=== PATIENT | male | born 1975 | race Caucasian/White ===

== ENCOUNTER 2025-01-23 11:10 | Outpatient (OUT) | payer BC, SELFPAY ==
--- OUTSIDE RECORDS SUMMARY | 2025-01-23 11:20 | XMS_ITS | Clinical Summary ---
Author Organization [facility] Healthcare Address [address] [place] [address] Care Team Providers Care Cook Jelly Name Role Phone Unavailable Primary Care Provider Unavailabl e Allergies No known active allergies Medications albuterol HFA (ProAir HFA) 90 mcg/act inhalerIndication s:Asthma Inhale 2 puffs every 4 (four) hours if needed for wheezing. 8.5 g 3 3 Active Albuterol-Budeson omar (Airsupra) 90-80 MCG/ACT aerosolIndication s:Asthma, allergic, mild intermittent, uncomplicated (HCC) Inhale 2 puffs every 4 (four) hours if needed (As needed for cough shortness of breath or wheezing) 10.7 g 3 5 Active fluticasone-salme terol (Advair HFA) 115-21 MCG/ACT inhalerIndication s:Asthma, allergic, mild intermittent, uncomplicated (HCC) Inhale 2 puffs in the morning and 2 puffs before bedtime. Rinse mouth with water after use to reduce aftertaste and incidence of candidiasis. Do not swallow.. 12 g 5 07/10/19 26 Active fluticasone (Flonase) 50 MCG/ACT nasal sprayIndications: Chronic rhinitis Administer 2 sprays into each nostril Daily Shake gently. Before first use, prime pump. After use, clean tip and replace cap. 16 g 5 07/10/19 26 Active loratadine (Claritin) 10 MG tabletIndications :Chronic rhinitis Take 1 tablet (10 mg) by mouth Daily as needed for allergies 30 tablet 5 07/10/19 26 Active montelukast (Singulair) 10 MG tabletIndications :Asthma, allergic, mild intermittent, uncomplicated (HCC) Take 1 tablet (10 mg) by mouth at bedtime 10 tablet 07/10/19 Active tiotropium (Spiriva Respimat) 1.25 MCG/ACT inhalerIndication s:Asthma, allergic, mild intermittent, uncomplicated (HCC) Inhale 2 puffs Daily 1 each 07/10/19 Active azelastine (Optivar) 0.05 % ophthalmic solutionIndicatio ns:Chronic rhinitis Administer 1 drop into both eyes in the morning and 1 drop before bedtime. 6 mL 07/10/19 Active azelastine (Astelin) 0.1 % nasal sprayIndications: Chronic rhinitis Administer 2 sprays into each nostril in the morning and 2 sprays before bedtime. Use in each nostril as directed. 30 mL 07/10/19 Active Active Problems No known active problems Social History Tobacco Use Types Packs/Day Years Used Date Smoking Tobacco: Never Smokeless Tobacco: Never Tobacco Cessation:Counseling Given: Not Answered Comments Unknown Sex and Gender Information Value Date Recorded Sex Assigned at Not on file Legal Sex Female 8:25 PM EDT Gender Identity Not on file Sexual Orientation Not on file Last Filed Vital Signs Vital Sign Reading Time Taken Comments Blood Pressure 120/72 06/12/2018 12:00 PM EST Pulse - - Temperature - - Respiratory Rate - - Oxygen Saturation - - Inhaled Oxygen Concentration - - Weight 78.9 kg (174 lb) 07/10/2024 3:21 PM EST Height 175.3 cm (5' 9 ) 09/30/2020 12:00 PM EDT Body Mass Index 25.7 09/30/2020 12:00 PM EDT Plan of Treatment Upcoming Encounters Date Type Department Care Team (Late st Contact Info) Description 07/09/2025 4:00 PM EST Office Visit [facility] [address] [facility] [address] [place] [phone] Alexander Ching MD [address] [facility] [facility] [address] [place] [address] Insurance [facility]
[2025-01-23 13:16] LABS: TSH W/ REFLEX FT4 0.043 uIU/mL (0.358-3.740)
== END 2025-01-23 11:11 | disposition home or self-care (01) ==
LOC: LAB 11:18
PROVIDERS: PCP Nurse Practitioner Family; Visit Provider Nurse Practitioner Family
DX: E89.0 Postprocedural hypothyroidism (principal); Z98.890 Other specified postprocedural states; Z90.89 Acquired absence of other organs
CPT/HCPCS: 36415; 84439; 84443

== ENCOUNTER 2025-02-12 15:22 | Outpatient (OUT) | payer BC, SELFPAY ==
--- OUTSIDE RECORDS SUMMARY | 2025-02-12 15:23 | XMS_ITS | Clinical Summary ---
Author Organization [facility] Address [address] [place], [place] [id number] Care Team Providers Care Culinary Instructor Name Role Phone Michael TOMAS Chidi Primary Care Provider Allergies Active Allergy Reactions Criticality Noted Date Comments Nsaids (Non-Steroidal Anti-Inflammatory Drug) Other: See Comments 12/17/2018 Penicillins Rash 12/15/2010 Metoclopramide Hcl Other: See Comments 12/16/19 11 Locked jaw Seasonal Allergies Intolerance 12/15/2010 Medications fluticasone-indira meterol (ADVAIR DISKUS) 500-50 mcg/dose INHALATION DsDv Inhale 1 Puff as instructed twice daily. rinse and gargle mouth with water after each use 1 Inhaler 0 1 Active mometasone 50 mcg/Actuation NASAL nasal spray Use 2 Sprays in each nostril once daily. 1 g 0 1 Active montelukast (SINGULAIR) 10 mg ORAL tablet Take 1 tablet by mouth daily at bedtime. 0 1 Active albuterol HFA 90 mcg/Actuation INHALATION inhaler Inhale 2 Puffs as instructed every 4 hours as needed. 1 Inhaler 3 1 Active levothyroxine (SYNTHROID) 150 mcg tablet Take 150 mcg by mouth once daily. 6 9 Active calcium carbonate (CALCIUM 500 ORAL) Take by mouth. Activ e MULTIVITAMIN ORAL Take by mouth. Activ e acetaminophen (TYLENOL EXTRA STRENGTH) 500 mg tablet Take 500 mg by mouth as needed. Active Active Problems No known active problems Social History Tobacco Use Types Packs/Day Years Used Date Smoking Tobacco: Never Smokeless Tobacco: Never PHQ-2 Answer Date Recorded PHQ-2 score 0 12/17/2018 Area Deprivation Index Answer Date Cy rded National Score (1-100), lower number is lower ri sk Not on file 05/05/2020 State Score (1-10), lower number is lower risk N ot on file 05/05/2020 Data from: https://www.neighborhoodatlas.medicine.[facility].edu/. Last address used for calculation Not on file 05/05/2020 Comments Unknown Sex and Gender Information Value Date Recorded Sex Assigned at Not on file Legal Sex Female 10:07 AM EST Gender Identity Not on file Sexual Orientation Not on file Last Filed Vital Signs Vital Sign Reading Time Taken Comments Blood Pressure 120/72 02/11/2019 12:08 PM EDT Pulse 85 02/11/2019 12:08 PM EDT Temperature 37 C (98.6 F) 02/11/2019 12:08 PM EDT Respiratory Rate - - Oxygen Saturation 97% 12/15/2010 1:04 PM EDT Inhaled Oxygen Concentration - - Weight 74.8 kg (165 lb) 02/11/2019 12:08 PM EDT Height 177.8 cm (5' 10 ) 02/11/2019 12:08 PM EDT Body Mass Index 23.68 02/11/2019 12:08 PM EDT Plan of Treatment Health Maintenance Due Date Last Done Comments Anxiety Screening 1992 Depression Screening 1992 HIV Screening 1992 Hepatitis C Screening 1992 DTaP,Tdap,Td Vaccine (1 - Tdap) 1993 Hepatitis B Vaccine (1 of 3 - 19+ 3-dose series) 1993 Cervical Cancer Screening [address] Colonography 2019 Cologuard (FIT-DNA) 2019 Colonoscopy 2019 Colorectal Cancer Screening 2019 Fecal Occult Blood 2019 Lipid Screening 2019 Sigmoidoscopy 2019 Diabetes Screening 12/17/2021 12/17/2018 Pneumococcal Vaccine: 50+ (1 of 1 - PCV) 2024 Shingrix Vaccine (1 of 2) 2024 Influenza Vaccine (#1) 2025 8, 03/05/2017, 02/18/2016, Additional history exists Procedures Procedure Name Priority Date/Time Associated Diagnosis Comments COMPREHENSIVE METABOLIC PANEL Routine 12/17/2018 9:29 AM EDT Hypermobility arthralgia Fibromyalgia from Last 3 Months or Most Recently Relevant to Health Maintenance Results * COMP METABOLIC PANEL (12/17/2018 9:29 AM EDT) Pathologist [facility] Protein, Total 7.7 6.3 - 8.0 g/dL 12/17/2018 11:14 AM [facility] Albumin 4.9 3.9 - 4.9 g/dL 12/17/2018 11:14 AM [facility] Calcium 9.6 8.5 - 10.2 mg/dL 12/17/2018 11:14 AM [facility] Bilirubin, Total 0.4 0.2 - 1.3 mg/dL 12/17/2018 11:14 AM [facility] Alkaline Phosphatase 79 34 - 123 U/L 12/17/2018 11:14 AM [facility] AST 16 13 - 35 U/L 12/17/2018 11:14 AM [facility] Glucose 96 74 - 99 mg/dL 12/17/2018 11:14 AM [facility] Comment: The [place] Diabetes Association (ADA) provides guidance for cutoff values for fasting glucose and random glucose. The ADA defines fasting as no caloric intake for at least 8 hours. Fasting plasma glucose results between 100 to 125 mg/dL indicate increased risk for diabetes (prediabetes). Fasting plasma glucose results greater than or equal to 126 mg/dL meet the criteria for diagnosis of diabetes. In the absence of unequivocal hyperglycemia, results should be confirmed by repeat testing. In a patient with classic symptoms of hyperglycemia or hyperglycemic crisis, random plasma glucose results greater than or equal to 200 mg/dL meet the criteria for diagnosis of diabetes. Reference: Standards of Medical Care in Diabetes 2016, [place] [employer]. Diabetes Care. 2016.39(Suppl 1). BUN 9 7 - 21 mg/dL 12/17/2018 11:14 AM [facility] Creatinine 0.93 0.58 - 0.96 mg/dL 12/17/2018 11:14 AM [facility] Sodium 138 136 - 144 mmol/L 12/17/2018 11:14 AM [facility] Potassium 4.5 3.7 - 5.1 mmol/L 12/17/2018 11:14 AM EDT [facility] Chloride 102 97 - 105 mmol/L 12/17/2018 11:14 AM EDT [facility] CO2 23 22 - 30 mmol/L 12/17/2018 11:14 AM EDT [facility] Anion Gap 13 9 - 18 mmol/L 12/17/2018 11:14 AM EDT [facility] ALT 16 7 - 38 U/L 12/17/2018 11:14 AM EDT [facility] eGFR- >60 12/17/2018 11:14 AM EDT [facility] eGFR-All Other Races >60 . 12/17/2018 11:14 AM EDT [facility] Comment: eGFR (Estimated GFR) Units of measure: mL/min/1.73 meters squared eGFR is derived from the reexpressed MDRD Study equation using the following parameters: serum creatinine, age, gender and race. The creatinine assay has been calibrated to be traceable to IDMS. An eGFR <60 mL/min/1.73m2 for >3 months is consistent with chronic kidney disease. Refer to KDOQI guidelines for clinical interpretation. In patients with unstable renal function, e.g. those with acute kidney injury, the eGFR may not accurately reflect actual GFR. Blood specimen (specimen) BLOOD SPECIMEN / Unknown 12/17/2018 9:29 AM EDT 12/17/2018 9:31 AM EDT Javier Corcoran MD LABORATORY Final Result [facility] [address] [place] [address] [facility] [address] [place] [address] from Last 3 Months or Most Recently Relevant to Health Maintenance Insurance BLUE CARD PPO OOS Care Teams Culinary Instructor Relationship Specialty Start Date End Date Chidi Rodriguez III, DO PCP - General Family Medicine 10/25/10
--- OUTSIDE RECORDS SUMMARY | 2025-02-12 15:23 | XMS_ITS | Clinical Summary ---
Author Organization [facility] Healthcare Address [address] [place] [address] Care Team Providers Care Steward/Stewardess Room Name Role Phone Unavailable Primary Care Provider [...] PM EST Office Visit [facility] [address] [facility] [address] [place] [phone] Alexander Ching MD [address] [facility] [address] [place] [address] Insurance [facility]
== END 2025-02-12 15:23 | disposition home or self-care (01) ==
LOC: RAD 15:22
PROVIDERS: PCP Nurse Practitioner Family; Visit Provider Nurse Practitioner Family
DX: Z13.820 Encounter for screening for osteoporosis (principal); N95.9 Unspecified menopausal and perimenopausal disorder; Z30.42 Encounter for surveillance of injectable contraceptive; M85.80 Other specified disorders of bone density and structure, unspecified site
CPT/HCPCS: 77080

== ENCOUNTER 2025-03-06 08:11 | Outpatient (OUT) | payer BC, SELFPAY ==
[2025-03-06 08:57] LABS: Hematocrit 43.9 % (36.0-48.0); Hemoglobin 14.8 g/dL (12.0-16.0); Immature Granulocytes Abs Auto 0.03 10^3/uL (0.00-0.03); Immature Granulocytes Pct Auto 0.3 % (0.0-0.5); Lymphocytes Absolute Auto 1.7 10^3/uL (1.2-3.8); Mean Corpuscular HGB Conc 33.7 g/dL (29.9-35.2); Mean Corpuscular Hemoglobin 31.9 pg (26.7-34.0); Mean Corpuscular Volume 94.6 fL (81.0-99.0); Platelet Count 223 10^3/uL (150-450); Red Blood Count 4.64 10^6/uL (4.20-5.40); White Blood Count 9.4 10^3/uL (4.0-11.0)
[2025-03-06 16:03] LABS: Alanine Aminotransferase 36 U/L (14-59); Albumin Globulin Ratio 1.1; Albumin Level 4.1 g/dL (3.4-5.0); Alkaline Phosphatase 132 U/L (46-116); Anion Gap 14.8; Aspartate Amino Transferase 22 U/L (15-37); Blood Urea Nitrogen 16.0 mg/dL (7.0-18.0); Calcium 9.5 mg/dL (8.5-10.1); Carbon Dioxide 23.5 mmol/L (21.0-32.0); Chloride 105 mmol/L (98-107); Cholesterol 220 mg/dL (<=200); Estimated GFR (African America >60 (>=60 mL/min/1.73m^2); Estimated GFR (Non-African Ame >60 (>=60 mL/min/1.73m^2); Globulin 3.7 g/dL; Glucose 102 mg/dL (74-106); HDL Cholesterol 63 mg/dL (40-60); Potassium 4.3 mmol/L (3.5-5.1); Sodium 139 mmol/L (136-145); TSH W/ REFLEX FT4 2.005 uIU/mL (0.358-3.740); Total Protein 7.8 g/dL (6.4-8.2); Triglycerides 45 mg/dL (<=150); VLDL CHOLESTEROL 9.0 mg/dL
== END 2025-03-06 08:12 | disposition home or self-care (01) ==
LOC: LAB 08:12
PROVIDERS: PCP Nurse Practitioner Family; Visit Provider Nurse Practitioner Family
DX: M85.80 Other specified disorders of bone density and structure, unspecified site (principal); E89.0 Postprocedural hypothyroidism; Z13.220 Encounter for screening for lipoid disorders
CPT/HCPCS: 36415; 80053; 80061; 82306; 84443; 85025